=== PATIENT | male | born 1955 ===

== ENCOUNTER 2019-09-19 09:44 | Day surgery (SDC) | payer OTHER ==
[~2019-09-19 09:44] MED LIST: AMBIEN10 MG PO; HYZAAR 50/12.51 TAB; TELMISARTAN-HC1 EAC1 PO
== END 2019-09-19 20:55 | disposition home or self-care (01) ==
LOC: CIR.AMB 09:44
DX: S52.531A Colles' fracture of right radius, initial encounter for closed fracture (principal)
CPT/HCPCS: 25609; 25280; 25118; C1776

== ENCOUNTER 2021-01-14 16:47 | Emergency (ER) | payer OTHER ==
[~2021-01-14] VITALS: Ht 182.9 cm; Wt 129.3 kg
[2021-01-15] MEDS ORDERED: LEVOFLOXACIN500 MG PO (07:01)
[2021-01-15] MEDS ORDERED: KETO10TA2 PO (07:01)
== END 2021-01-15 07:20 | disposition home or self-care (01) ==
LOC: ER 16:47
DX: N20.0 Calculus of kidney (principal)